=== PATIENT | male | born 1960 | race African-American/Black ===

== ENCOUNTER 2021-11-08 06:22 | Day surgery (SDC) | payer BC ==
[~2021-11-08 06:22] MED LIST: Lactated Ringers 1,000 ML IV SCH; ceFAZolin 2 GM in Premix Bag 1 BAG IV ONE
[2021-11-08] MEDS ORDERED: Propofol 200 MG/20 ML SDV ONE (06:53)
[2021-11-08] MEDS ORDERED: Midazolam 1 MG/ML 2 ML SDV ONE (06:53)
[2021-11-08] MEDS ORDERED: fentaNYL 250 MCG/5 ML SDV ONE (06:53)
[2021-11-08] MEDS ORDERED: Ondansetron 4 MG/2 ML SDV ONE (06:54)
[2021-11-08] MEDS ORDERED: Rocuronium Bromide 50 MG/5 ML Syringe ONE (06:54)
[2021-11-08] MEDS ORDERED: Dexamethasone 4 MG/ML 5 ML MDV ONE (06:54)
[2021-11-08] MEDS ORDERED: Sugammadex Sodium 200 MG/2 ML VIAL ONE (06:54)
[2021-11-08] MEDS ORDERED: Morphine 2 MG/ML SYRINGE IVPUSH PRN (07:19)
[2021-11-08] MEDS ORDERED: Naloxone 0.4 MG/ML SDV IVPUSH PRN (07:19)
[2021-11-08] MEDS ORDERED: HYDROmorphone 1 MG/ML Syringe IVPUSH PRN (07:19)
[2021-11-08] MEDS ORDERED: Metoclopramide 10 MG/2 ML SDV IVPUSH PRN (07:19)
[2021-11-08] MEDS ORDERED: fentaNYL 100 MCG/2 ML SDV IVPUSH PRN (07:19)
[2021-11-08] MEDS ORDERED: Ondansetron 4 MG/2 ML SDV IVPUSH PRN (07:19)
[2021-11-08] MEDS ORDERED: Albuterol 0.083% 2.5 MG/3 ML Neb Soln NEB PRN (07:19)
[2021-11-08] MEDS ORDERED: Octyl 2-Cyanoacrylate 1 Tube ONE (07:23)
[2021-11-08] MEDS ORDERED: Bupivacaine 0.25%/EPINEPHrine 1:200,000 10 ML SDV ONE ×2 (07:23→07:33)
[2021-11-08] MEDS ORDERED: Bupivacaine 0.5% 30 ML SDV ONE (07:33)
[2021-11-08] MEDS ORDERED: ePHEDrine 50 MG/ML SDV ONE (08:20)
[2021-11-08] MEDS ORDERED: Water For Injection, Sterile 20 ML ONE (08:20)
== END 2021-11-08 12:30 | disposition home or self-care (01) ==
LOC: MW.SDS 06:22
PROVIDERS: ATTEND Surgery
DX: K40.90 Unilateral inguinal hernia, without obstruction or gangrene, not specified as recurrent (principal); Z79.899 Other long term (current) drug therapy; F17.210 Nicotine dependence, cigarettes, uncomplicated
CPT/HCPCS: 49505; J0131; J0690; J1100; J2250; J2370; J2704; J3010; J3490; J7120; 00830; 64486; A9270-GY; C1781; J2405

== ENCOUNTER 2022-02-05 07:13 | Inpatient (IN) | payer BC ==
[~2022-02-05 07:13] MED LIST changes: +Albuterol 0.083% 2.5 MG/3 ML Neb Soln NEB PRN; +Dexmedetomidine 200 MCG/2 ML SDV ONE; +Famotidine 20 MG/2 ML SDV IVPUSH SCH; +HYDROmorphone 1 MG/ML Syringe IVPUSH PRN; +Metoclopramide 10 MG/2 ML SDV IVPUSH PRN; +Morphine 4 MG/ML VIAL IVPUSH PRN; +Naloxone 0.4 MG/ML SDV IVPUSH PRN; +Ondansetron 4 MG/2 ML SDV IVPUSH PRN; +Ropivacaine 49.25 ML, Ketorolac 30 MG, EPINEPHrine 0.5 MG, cloNIDine 80 MCG in Sodium C... INJECT SCH; +Scopolamine 1.5 MG Transdermal Patch TOP ONE; +Scopolamine 1.5 MG Transdermal Patch TRDERM SCH; +Tranexamic Acid 1,000 MG in Sodium Chloride 0.9% 100 ML IV ONE; -ceFAZolin 2 GM in Premix Bag 1 BAG IV ONE; +fentaNYL 100 MCG/2 ML SDV IVPUSH PRN
[2022-02-05] MEDS ORDERED: Propofol 200 MG/20 ML SDV ONE (07:14)
[2022-02-05] MEDS ORDERED: fentaNYL 100 MCG/2 ML SDV ONE (07:14)
[2022-02-05] MEDS ORDERED: Water For Injection, Sterile 20 ML ONE (07:15)
[2022-02-05] MEDS ORDERED: ceFAZolin 2 GM in Premix Bag 1 BAG IV SCH (08:00)
[2022-02-05] MEDS ORDERED: Lidocaine 2% 5 ML SDV ONE (08:18)
[2022-02-05] MEDS ORDERED: Phenylephrine 1% 10 MG/ML SDV ONE (08:38)
[2022-02-05] MEDS ORDERED: Ropivacaine/Ketorolac/Ketamine 100-15-30/50 ML Syringe INJECT ONE (09:00)
[2022-02-05] MEDS ORDERED: propofoL 100 ML ONE (09:09)
[2022-02-05] MEDS ORDERED: Ondansetron 4 MG/2 ML SDV ONE (10:17)
[2022-02-05] MEDS ORDERED: Ketorolac 30 MG/ML SDV ONE ×2 (10:17→11:52)
[2022-02-05] MEDS ORDERED: ePHEDrine 50 MG/ML SDV ONE (10:34)
[2022-02-05] MEDS ORDERED: Aluminum Hydroxide/Magnesium Hydroxide/Simethicone XS Susp 30 ML Cup PO PRN (11:29)
[2022-02-05] MEDS ORDERED: Morphine 2 MG/ML SYRINGE IVPUSH PRN (11:29)
[2022-02-05] MEDS ORDERED: Sodium Chloride 0.9% 10 ML Syringe FLUSH PRN (11:29)
[2022-02-05] MEDS ORDERED: Sodium Chloride 0.9% 2.5 ML Syringe FLUSH PRN (11:29)
[2022-02-05] MEDS ORDERED: diphenhydrAMINE 25 MG Cap PO PRN ×2 (11:29→12:06)
[2022-02-05] MEDS ORDERED: Ondansetron 4 MG/2 ML SDV IVPUSH PRN (11:29)
[2022-02-05] MEDS ORDERED: traMADol 50 MG Tab PO PRN (11:29)
[2022-02-05] MEDS: Ketorolac 30 MG/ML SDV IVPUSH SCH ×3 (11:54→23:41)
[2022-02-05 15:31] LABS: BLOOD UREA NITROGEN,BUN 13 mg/dL (7.0-18.0); CARBON DIOXIDE,CO2 28.4 mmol/L (21.0-32.0); CHLORIDE,CL 105 mmol/L (98-107); GLUCOSE RANDOM 88 mg/dL (74-106); POTASSIUM,K 3.8 mmol/L (3.5-5.1); SODIUM,NA 139 mmol/L (136-148)
[2022-02-05] MEDS: ceFAZolin 2 GM in Premix Bag 1 BAG IV SCH ×2 (16:12→23:41)
[2022-02-05] MEDS: Aspirin 325 MG Tab PO SCH (19:07)
[2022-02-05] MEDS: Docusate Sodium 100 MG Cap PO SCH (20:59)
[2022-02-05] MEDS: Nicotine 14 MG/24 Hr Patch TRDERM SCH (21:00)
[2022-02-06 06:58] LABS: BLOOD UREA NITROGEN,BUN 14 mg/dL (7.0-18.0); CARBON DIOXIDE,CO2 24.4 mmol/L (21.0-32.0); CHLORIDE,CL 104 mmol/L (98-107); GLUCOSE RANDOM 107 mg/dL (74-106); POTASSIUM,K 3.7 mmol/L (3.5-5.1); SODIUM,NA 136 mmol/L (136-148)
[2022-02-06] MEDS ORDERED: Famotidine 20 MG Tab PO SCH (07:30)
[2022-02-06] MEDS ORDERED: Magnesium Sulfate/Water 2 GM in Premix Bag 1 BAG IV ONE (07:55)
[2022-02-06] MEDS: Aspirin 325 MG Tab PO SCH (08:46)
[2022-02-06] MEDS: Docusate Sodium 100 MG Cap PO SCH (08:47)
[2022-02-06] MEDS: Nicotine 14 MG/24 Hr Patch TRDERM SCH (08:48)
[2022-02-06] MEDS ORDERED: Polyethylene Glycol 3350 Powder 17 GM Packet PO SCH (09:00)
[2022-02-06] MEDS ORDERED: Olmesartan 20 MG Tab PO SCH (09:00)
[2022-02-06] MEDS ORDERED: AMLODIPINE BES PO SCH (09:00)
[2022-02-06] MEDS ORDERED: Multivitamin Tab PO SCH (09:00)
[2022-02-06] MEDS ORDERED: OLMESARTAN MED PO SCH (09:00)
[2022-02-06] MEDS ORDERED: amLODIPine 5 MG Tab PO SCH (09:00)
[2022-02-06] MEDS: oxyCODONE 5 MG Tab PO PRN ×2 (09:02→15:02)
[2022-02-06] MEDS ORDERED: Ibuprofen 800 MG Tab PO PRN (09:53)
[2022-02-07] MEDS ORDERED: Aspirin 325 MG Tab.EC PO SCH (09:00)
== END 2022-02-06 15:30 | disposition home or self-care (01) | DRG 324 ==
LOC: MW.MS 07:13
PROVIDERS: ADMIT Orthopaedic Surgery; ATTEND Orthopaedic Surgery
PROC: 0SR90JZ Replacement of Right Hip Joint with Synthetic Substitute, Open Approach (ICD-10-PCS; principal; 2022-02-05)
DX: M16.11 Unilateral primary osteoarthritis, right hip (principal); I10 Essential (primary) hypertension; N52.9 Male erectile dysfunction, unspecified; F17.210 Nicotine dependence, cigarettes, uncomplicated; Z79.82 Long term (current) use of aspirin; Z79.899 Other long term (current) drug therapy
CPT/HCPCS: 01214; 36415; 64486; 73501-26-RT; 73501-RT; 80048; 83735; 85014; 85018; 85025; 86850; 86900; 86901; 97110-GP; 97112-GP; 97116-GP; 97163-GP; 97530-GP; A9270-GY; J0171; J0690; J0735; J1885; J2370; J2405; J2704; J2795; J3010; J3475; J3490; J7120